=== PATIENT | male | born 1940 | race Caucasian/White ===

== ENCOUNTER → 2016-11-17 | Outpatient (CLI) | payer OTHER ==
[~2016-11-17] MED LIST: ASPI-232 PO; CARV12.52 PO; OMEP20CA9 PO
== END | disposition home or self-care (01) ==
LOC: C.LABPBG 10:46
PROVIDERS: ATTEND Urology
DX: C61 Malignant neoplasm of prostate (principal)

== ENCOUNTER → 2017-08-25 | Outpatient (CLI) | payer OTHER | END | disposition home or self-care (01) | LOC: C.LABPBG 09:53 | PROVIDERS: ATTEND Urology | DX: C61 Malignant neoplasm of prostate (principal) ==

== ENCOUNTER 2020-12-02 11:27 | Observation (INO) ==
[2020-12-02] MEDS ORDERED: SODIUM CHLORIDE 0.9% 1000ML 1,000 ML IV ONE (12:43)
[2020-12-02] MEDS ORDERED: ASPIRIN CHEW 324 MG PO STA (12:43)
[2020-12-02] MEDS ORDERED: MAGNESIUM SULFATE / D5W 1 GM/100 ML BAG IV STA (12:44)
[2020-12-02 13:08] LABS: Basophils # (auto) 0.02 K/uL (0-0.2); Basophils % (auto) 0.2 %; Eosinophils # (auto) 0.13 K/uL (0-0.5); Eosinophils % (auto) 1.6 %; Immature Granulocytes # (auto) 0.01 K/uL (0.00-0.02); Immature Granulocytes % (auto) 0.1 %; Lymphocytes # (auto) 1.29 K/uL (1.2-3.4); Lymphocytes % (auto) 15.6 %; Mean Corpuscular Hemoglobin 28.7 pg (25-34); Mean Corpuscular Hgb Conc 33.3 g/dL (32-36); Mean Corpuscular Volume 86.1 fL (80-100); Mean Platelet Volume 10.5 fL (7.4-10.4); Monocytes # (auto) 1.14 K/uL (0.11-0.59); Monocytes % (auto) 13.8 %; Neutrophils % (auto) 68.7 %; Platelet Count 193 K/uL (130-400); RDW Coefficient of Variation 14.8 % (11.5-14.5); RDW Standard Deviation 46.9 fL (36.4-46.3); Red Blood Count 4.18 M/uL (4.7-6.1); White Blood Count 8.29 K/uL (4.8-10.8)
[2020-12-02 13:18] LABS: INR 1.2 (0.9-1.1); Partial Thromboplastin Ratio 1.2; Partial Thromboplastin Time 30.5 Seconds (21.0-31.0); Prothrombin Time 11.9 Seconds (9.0-12.0)
--- NOTE | 2020-12-02 13:23 | XRay Report ---
XR chest 1V portable HISTORY: Stroke Like Symptoms COMPARISON: Chest 03/29/2015. FINDINGS: There are poststernotomy changes. The heart is normal in size. No pleural effusions. No pne umothorax. No focal lung consolidations to suggest pneumonia. No evidence for pulmonary edema. IMPRESSION: No significant change compared to the prior study. No acute process. ACT 112: Negative or not required by law. Electronically signed by: Prasanna Becker M.D. 12/02/2020 1:22 PM
[2020-12-02 13:28] LABS: Albumin Level 3.7 gm/dl (3.4-5.0); BUN Creatinine Ratio 14.2 (10-20); Blood Urea Nitrogen 14 mg/dl (7-18); Calcium 9.4 mg/dl (8.5-10.1); Carbon Dioxide 30 mmol/L (21-32); Chloride 102 mmol/L (98-107); Creatinine Clr Calc Pharmacy 56.4 ml/min; Est GFR (African American) 82.2; Est GFR (Non-African American) 70.9; Glucose 95 mg/dl (70-99); Magnesium 1.6 mg/dl (1.8-2.4); Potassium 3.8 mmol/L (3.5-5.1); Sodium 135 mmol/L (136-145)
[2020-12-02 13:37] LABS: Alanine Aminotransferase 26 U/L (12-78); Albumin Globulin Ratio 0.8 (0.9-2); Alkaline Phosphatase 131 U/L (45-117); Aspartate Aminotransferase 27 U/L (15-37); Globulin 4.8 gm/dl (2.5-4.0); Total Protein 8.5 gm/dl (6.4-8.2); Troponin I < 0.015 ng/ml (0-0.045)
[2020-12-02] MEDS ORDERED: OPTIRAY 350 500ml IV ONE (14:05)
--- NOTE | 2020-12-02 14:16 | CT Scan Report ---
CT head/brain wo con CLINICAL HISTORY: Stroke Like Symptoms COMPARISON STUDY: No previous studies for comparison. TECHNIQUE: Axial CT of the brain is performed from the vertex to the skull base. IV contrast was not administered for this examination. A dose lowering technique was utilized adhering to the principles of ALARA. CT DOSE: 1419.22 mGy.cm FINDINGS: No intra or extra-axial mass lesions are visualized. There is no CT evidence of acute cortical infarc tion. There is no evidence of midline shift. There is no acute hemorrhage. No calvarial fractures ar e visualized. There are patchy white matter hypodensities likely on a small vessel basis. There is a right lateral thalamic infarct, likely old. There is no evidence of pathologic ventricular dilatation. There is no evidence of acute sinusitis IMPRESSION: 1. Right lateral thalamic infarct, likely old 2. No evidence of acute hemorrhage. No evidence of intracranial mass. ACT 112: Negative or not required by law. Electronically signed by: Adria Diaz M.D. 12/02/2020 2:15 PM
--- NOTE | 2020-12-02 14:19 | CT Scan Report ---
CT angio neck with con CLINICAL HISTORY: Stroke Like Symptoms COMPARISON STUDY: No previous studies for comparison. TECHNIQUE: CT angiography was performed from the aortic arch to the skull base. MIP imaging was perfo rmed. The patient was scanned in a dynamic helical fashion during intravenous administration of 114 c c of Optiray. A dose lowering technique was utilized adhering to the principles of ALARA. CT DOSE: Technique: CT angiogram of the carotid and vertebral arteries was obtained using intravenous contrast and 3-D reconstruction. NASCET criteria was utilized. Findings: There is pulmonary emphysema. The right carotid reveals extensive calcific atheromatous plaque at the bulb. There is no evidence of hemodynamically significant stenosis. There is cavernous sinus carotid calcification. Without hemody namic significant stenosis. There is no dissection. The left carotid reveals extensive calcific atheromatous plaque at the level of the bulb. There is no evidence of hemodynamically significant left carotid stenosis. There is cavernous carotid calcificat ion without evidence of significant stenosis. There is no evidence of hemodynamically significant vertebral stenosis. There is no evidence of verte bral dissection. IMPRESSION: No evidence of hemodynamically significant carotid or vertebral artery stenosis. No evidence of disse ction. ACT 112: Negative or not required by law. Electronically signed by: Adria Diaz M.D. 12/02/2020 2:18 PM
--- NOTE | 2020-12-02 14:23 | CT Scan Report ---
HEAD CTA HISTORY: Difficulty walking. Stroke Like Symptoms TECHNIQUE: Multiaxial CT images of the head were performed both before and after the intravenous admi nistration of contrast to evaluate the major cerebral vessels. Maximum intensity projection images we re also obtained. A dose lowering technique was utilized adhering to the principles of ALARA. COMPARISON: Head CT 11/24/2020. FINDINGS: The major dural venous sinuses appear patent. Focal severe stenosis within the distal left vertebral artery due to the extensive calcified plaque. The remaining distal left vertebral artery an d right vertebral artery are patent. No significant stenosis within the basilar artery. There is mode rate multifocal narrowing within the bilateral carotid siphons due to the extensive calcified plaque. No significant stenosis, occlusion, or aneurysm within the bilateral ACAs, MCAs, or associate product integrity engineer. IMPRESSION: 1. Focal severe stenosis within the distal left intracranial vertebral artery due to the extensive ca lcified plaque. 2. Moderate multifocal narrowing within the bilateral carotid siphons due to the extensive calcified plaque. 3. No significant stenosis, occlusion, or aneurysm within the bilateral ACAs, MCAs, or associate product integrity engineer. ACT 112: Negative or not required by law. Electronically signed by: Prasanna Becker M.D. 12/02/2020 2:22 PM
--- NOTE | 2020-12-02 15:02 | Magnetic Resonance Report ---
MRI OF THE BRAIN WITHOUT CONTRAST CLINICAL HISTORY: Stroke like symptoms COMPARISON STUDY: Noncontrast head CT dated 11/24/2020 FINDINGS: Sagittal T1, axial diffusion, proton density and T2 weighted axial, coronal FLAIR, and axial T1-weigh cade images were acquired. No intra or extra-axial mass lesions are visualized There is a 1 cm focus of restricted water diffusion within the right lateral thalamus. The findings a re consistent with a subacute infarct, given the appearance on the accompanying noncontrast head CT. There is no evidence of ventricular dilatation. Proton density T2-weighted and FLAIR images reveal scattered foci of increased T2 signal within the w [place]ap[place] matter, likely on a small vessel basis. There are no abnormal flow voids. IMPRESSION: 1. 1 cm subacute infarct within the right lateral thalamus. ACT 112: Negative or not required by law. Electronically signed by: Adria Diaz M.D. 12/02/2020 3:00 PM
[2020-12-02 15:15] LABS: Influenza A virus by PCR Negative (Neg); Influenza B virus by PCR Negative (Neg); RSV by PCR Negative (Neg); SARS CoV2 RNA(COVID-19) InHosp NEGATIVE (Negative)
--- NOTE | 2020-12-02 15:28 | History & Physical Report ---
Date of Service December 02, 2020 Assessment & Plan (1) Cerebrovascular accident (CVA): Mr. Castillo is a 80-year-old male with a history of CAD s/p AR 2003, CABG x 3 Vessels 2003 ([facility]), Dyslipidemia, Former Smoker, Prostate Cancer s/p Robotically-Assisted Prostatectomy 2014, Urinary Incontinence, Alcohol Abuse (4 beers and 4 glasses of wine/day), Peripheral Neuropathy, and Carotid Artery Stenosis who sustained a Right Lateral Thalamic CVA 12 days ago. Patient did not seek medical attention until 11/30/2020 when he was evaluated at [facility]. Patient was told he had a stroke in the ER of that facility -- and he was advised to be admitted for further evaluation by Neurology and Physical Therapy. Patient decided he did not want to do that, so he signed out AMA. Nonetheless, the patient's has been encouraging him to seek further evaluation and treatment, so at her insistence he came to [facility] ER today. Patient continues to experience mild left upper extremity and mild left leg weakness, has difficulty holding objects with his left hand, and struggles to walk up the stairs because of his left leg weakness. Patient denies any progression of this weakness since its initial onset. He has not had any slurred speech, visual disturbance, blind spots, black spots, loss of visual mckeon, nor has he had any facial droop. Patient's states that he has been having difficulty swallowing foods and pills -- but this has been present for years, and has not changed recently or with the onset of his recent stroke symptoms. Apparently the patient has been living on Boost, beer, and wine. He still does eat some solid foods. Otherwise, patient is chronically incontinent of urine but has refused to seek any medical attention for this problem. Again, this predates his recent stroke symptoms. Recommend the followin. Continue Aspirin 81 mg daily. 2. Load with Plavix 300 mg now, then Plavix 75 mg daily. 3. Neurology consult. 4. Physical therapy and occupational therapy evaluations. 5. Begin Atorvastatin 40 mg daily. (2) Left-sided muscle weakness: Secondary to CVA. -- PT/OT Evaluations. (3) CAD (coronary atherosclerotic disease): CAD s/p CABG x 3 Vessels 2003 -- quiescent. -- Continue Coreg 12.5 mg daily. -- Continue Aspirin 81 mg daily. -- Atorvastatin 40 mg daily has been added. -- Plavix 75 mg daily. (4) Hypertension: Blood pressure appears to be well controlled. -- Continue Coreg 12.5 mg daily. -- Continue Amlodipine 5 mg daily. (5) Dyslipidemia: Overall, his cholesterol panel does not look bad, but considering he has vascular disease including CAD, carotid artery disease, and cerebral vascular disease -- we will add a statin. -- Atorvastatin 40 mg daily has been added. History of Present Illness Chief Complaint: -- Right Lateral Thalamic Stroke. -- Carotid Artery Plaques. -- Focal severe stenosis within the distal left intracranial vertebral artery due to the extensive calcified plaque. Primary Care Provider: Sherri Mi DO Mr. Castillo is a 80-year-old male with a history of CAD s/p AR 2003, CABG x 3 Vessels 2003 ([facility]), Dyslipidemia, Former Smoker, Prostate Cancer s/p Robotically-Assisted Prostatectomy 2014, Urinary Incontinence, Alcohol Abuse (4 beers and 4 glasses of wine/day), Peripheral Neuropathy, and Carotid Artery Stenosis who sustained a Right Sided CVA 12 days ago -- but he did not seek medical attention until 11/30/2020 when he was evaluated at [facility]. Patient was told he had a stroke in the ER of that facility -- and he was advised to be admitted for further evaluation by Neurology and Physical Therapy. Patient decided he did not want to do that, so he signed out AMA. Nonetheless, the patient's has been encouraging him to seek further evaluation and treatment, so at her insistence he came to [facility] ER today. Patient continues to experience mild left upper extremity and mild left leg weakness, has difficulty holding objects with his left hand, and struggles to walk up the stairs because of his left leg weakness. Patient denies any progression of this weakness since its initial onset. He has not had any slurred speech, visual disturbance, blind spots, black spots, loss of visual mckeon, nor has he had any facial droop. Patient's states that he has been having difficulty swallowing foods and pills -- but this has been present for years, and has not changed recently or with the onset of his recent stroke symptoms. Apparently the patient has been living on Boost, beer, and wine. He still does eat some solid foods. Otherwise, patient is chronically incontinent of urine but has refused to seek any medical attention for this problem. Again, this predates his recent stroke symptoms. Please note that the patient has been taking Coreg, Aspirin, and Amlodipine on a daily basis -- and did not miss any doses leading up to his CVA. Patient is able to perform his usual activities of daily living without difficulty or limiting symptoms. He specifically denies any exertional chest pain, heaviness, tightness, pressure, or angina pectoris. No exertional neck, jaw, back, or arm pain. No shortness of breath or unusual dyspnea on exertion. He further denies any palpitations, syncope, or near-syncope. No orthopnea or PND. Patient underwent a Stress Echocardiogram 03/06/2015 and preparation of his prostatectomy. He exercised for 7 minutes and 37 seconds on standard Cristian protocol attaining a 10 MET workload, and 74% MPHR. No evidence of myocardial ischemia. Baseline LV systolic function within normal limits with an LVEF of 60%, mild mitral regurgitation. HISTORICAL BACKGROUND: Patient's cardiac history dates back to 2003 when he developed sudden onset crushing chest pain which radiated down bilateral arms and had associated nausea, vomiting, and diaphoresis. He was diagnosed with an AR (details unknown) and transferred to [facility] in [place], where he underwent CABG x 3 Vessels (DELGADILLO to LAD, IRAIS to PDA and BROOKE in a sequential fashion). No postoperative complications. Thereafter the patient remained asymptomatic from a cardiac standpoint. He had an Echocardiogram performed in October 2004 which showed normal LV size and systolic function with an LVEF of 55%, no regional wall motion abnormalities. Borderline LVH. Aortic valve sclerosis without stenosis, trace to mild MR, trace to mild TR. He also had a nuclear stress test 10/13/2004 which showed no evidence of ischemia. Patient denies any history of congenital heart disease, CHF, cardiomyopathy, rheumatic fever, or cardiac dysrhythmias. No history of diabetes mellitus, hypertension, or hypercholesterolemia? (Not on a statin). No history of COPD, asthma, emphysema, or chronic bronchitis. No history of thyroid disease. Allergies Allergy/AdvReac Type Severity Reaction Status Date / Time No Known Allergies Allergy Unverified 12/02/20 13:59 Home Medications Medication Instructions Recorded Confirmed Type aspirin 81 mg tablet 81 mg PO DAILY tab 05/17/19 12/02/20 History amlodipine 5 mg tablet 5 mg .ROUTE DAILY #90 tab 05/14/20 12/02/20 Rx carvedilol 12.5 mg tablet 12.5 mg PO DAILY #90 tab 09/29/20 12/02/20 Rx folic acid 1 mg PO DAILY 12/02/20 12/02/20 History magnesium oxide 400 mg PO DAILY 12/02/20 12/02/20 History Past Med/Surg History Medical History (Updated 12/02/20 @ 15:57 by César Hess PA-C) Allergic rhinitis CAD (coronary atherosclerotic disease) Chronic rhinitis Dyslipidemia GERD (gastroesophageal reflux disease) History of prostate cancer (01/2015) Hypertension Iron deficiency anemia Monoclonal gammopathy of unknown significance (MGUS) Prostate cancer (01/29/15) "Rising PSA. Pretreatment PSA 28.1 Status post biopsy 01/29/2015 biopsy stage T2b [place] grade 3+4 and 4+4 Prostate volume 28 Prostate density 1.16" On 02/19/15 16:55 Milagros Cruz wrote "Rising PSA. Pretreatment PSA 28.1 Status post biopsy 01/29/2015 biopsy stage T2b [place] grade 3+4 and 4+4 " Surgical History H/O prostate biopsy H/O prostatectomy (2014) History of esophagogastroduodenoscopy (EGD) Hx of CABG (2003) 3 vessel Status post hernia repair (11/24/15) incisional hernia repair Family History Brother Alcoholism Father Coronary heart disease Gall bladder disease Hypertension Myocardial infarction, Onset Age: 85 Mother Congestive heart failure Aunt Breast cancer, Onset Age: 60 Family/Other Prostate cancer COUSIN Uncle Myocardial infarction, Onset Age: 52 Social History Smoking Status: Former smoker Age Quit Using Tobacco: 37; packs per day: 1; Do You Dip or Chew Tobacco: No; Hx Alcohol Use: Yes Alcohol type: beer and wine Alcohol Intake Frequency Comment: 4-5 beers per day Hx Substance Use: No Preferred Language: Samoan Communication Ability: Effective Communication Center Coordinator Required: No Beliefs That Will Affect Care: None marital status: Current Living Situation: Spouse current occupational status: 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 HEENT: Head is atraumatic, normocephalic. Pupils are equal round and reactive to light. EOM's intact. Facies symmetric. No perioral cyanosis. No facial droop. Mucous membranes moist. Pharynx is clear. Tongue protrudes in midline. Uvula rises in midline. NECK: No JVD. JVP is at the level of the clavicle sitting upright. Carotid upstrokes are + 2 bilaterally without obvious bruits. CHEST/LUNGS: Mildly reduced breath sounds bilaterally, but otherwise clear. No wheezes, rales, or crackles. CVS: S1 and S2 are regular with occasional ectopy. No obvious murmurs, gallops, or rubs. No diastolic murmurs. PMI is nondisplaced. No lifts, heaves, or thrills. No abdominal aortic or renal bruits. ABDOMINAL EXAM: Bowel sounds are present. No masses, organomegaly, or tenderness. EXTREMITIES: No clubbing or cyanosis. No edema. Intact posterior tibial and radial pulses bilaterally. NEUROLOGIC EXAM: Patient is awake, alert, and oriented. Pleasant and cooperative. Answers questions appropriately. Speech is clear. Decreased food quality technician strength on the left compared to the right, decreased strength in the interosseous and lumbrical muscles of the left hand. No other upper extremity muscle groups deficits noted. Strength of major muscle groups in bilateral lower extremities appear to be equal in strength. Gait pattern was not assessed. Director Communications: -- NSR with occasional PVCs and PACs. EKG 12/02/20: -- Normal sinus rhythm at 63 beats per minute, normal tracing. -- Normal R-wave progression. -- Corrected QT interval 415 msec. Results & Data Results & Data ([facility]) Vital Signs (Past 12 Hours) Vital Signs Temp Pulse Resp BP Pulse Ox 12/02/20 11:48 98 12/02/20 11:33 36.7 C 73 16 107/59 L 97 Laboratory Results Laboratory Results - last 24 hr 12/02/20 12/02/20 12/02/20 12:44 12:44 12:44 WBC 8.29 RBC 4.18 L Hgb 12.0 L Hct 36.0 L MCV 86.1 MCH 28.7 MCHC 33.3 RDW Std Deviation 46.9 H RDW Coeff of Renan 14.8 H Plt Count 193 MPV 10.5 H Immature Gran % (Auto) 0.1 Neut % (Auto) 68.7 Lymph % (Auto) 15.6 [place] % (Auto) 13.8 Eos % (Auto) 1.6 Baso % (Auto) 0.2 Neut # (Auto) 5.70 Lymph # (Auto) 1.29 [place] # (Auto) 1.14 H Eos # (Auto) 0.13 Baso # (Auto) 0.02 Immature Gran # (Auto) 0.01 PT 11.9 INR 1.2 H APTT 30.5 PTT Ratio 1.2 Sodium 135 L Potassium 3.8 Chloride 102 Carbon Dioxide 30 Anion Gap 3.0 BUN 14 Creatinine 1.01 Est Cr Clr Drug Dosing 56.4 Est GFR ( Amer) 82.2 Est GFR (Non-Af Amer) 70.9 BUN/Creatinine Ratio 14.2 Glucose 95 Calcium 9.4 Magnesium 1.6 L Total Bilirubin 1.0 AST 27 ALT 26 Alkaline Phosphatase 131 H Troponin I < 0.015 Total Protein 8.5 H Albumin 3.7 Globulin 4.8 H Albumin/Globulin Ratio 0.8 L COVID-19 Eval Order SARS-CoV-2 (PCR) Influenza Type A (PCR) Influenza Type B (PCR) RSV (RT-PCR) 12/02/20 12/02/20 13:20 13:20 WBC RBC Hgb Hct MCV MCH MCHC RDW Std Deviation RDW Coeff of Renan Plt Count MPV Immature Gran % (Auto) Neut % (Auto) Lymph % (Auto) [place] % (Auto) Eos % (Auto) Baso % (Auto) Neut # (Auto) Lymph # (Auto) [place] # (Auto) Eos # (Auto) Baso # (Auto) Immature Gran # (Auto) PT INR APTT PTT Ratio Sodium Potassium Chloride Carbon Dioxide Anion Gap BUN Creatinine Est Cr Clr Drug Dosing Est GFR ( Amer) Est GFR (Non-Af Amer) BUN/Creatinine Ratio Glucose Calcium Magnesium Total Bilirubin AST ALT Alkaline Phosphatase Troponin I Total Protein Albumin Globulin Albumin/Globulin Ratio COVID-19 Eval Order CovFluRsv at [facility] SARS-CoV-2 (PCR) NEGATIVE Influenza Type A (PCR) Negative Influenza Type B (PCR) Negative RSV (RT-PCR) Negative Diagnostic Findings MRI BRAIN 12/02/20: Sagittal T1, axial diffusion, proton density and T2 weighted axial, coronal F LAIR, and axial T1-weighted images were acquired. No intra or extra-axial mass lesions are visualized There is a 1 cm focus of restricted water diffusion within the right lateral thalamus. The findings are consistent with a subacute infarct, given the appearance on the accompanying noncontrast head CT. There is no evidence of ventricular dilatation. Proton density T2-weighted and FLAIR images reveal scattered foci of increased T2 signal within the white matter, likely on a small vessel basis. There are no abnormal flow voids. IMPRESSION: 1. 1 cm subacute infarct within the right lateral thalamus. CTA NECK 12/02/20: 1. There is pulmonary emphysema. 2. The right carotid reveals extensive calcific atheromatous plaque at the bulb. There is no evidence of hemodynamically significant stenosis. There is cavernous sinus carotid calcification without hemodynamic significant stenosis. There is no dissection. 3. The left carotid reveals extensive calcific atheromatous plaque at the level of the bulb. There is no evidence of hemodynamically significant left carotid stenosis. There is cavernous carotid calcification without evidence of significant stenosis. 4. There is no evidence of hemodynamically significant vertebral stenosis. There is no evidence of vertebral dissection. IMPRESSION: No evidence of hemodynamically significant carotid or vertebral artery stenosis. No evidence of dissection. CTA BRAIN 12/02/20: 1. 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 2. Moderate multifocal narrowing within the bilateral carotid siphons due to the extensive calcified plaque. 3. No significant stenosis, occlusion, or aneurysm within the bilateral ACAs, MCAs, or principal account clerk. CXR 12/02/20: There are post-sternotomy changes. The heart is normal in size. No pleural effusions. No pneumothorax. No focal lung consolidations to suggest pneumonia. No evidence for pulmonary edema. IMPRESSION: No significant change compared to the prior study. No acute process. Medications Administered Medications aspirin 81 mg tablet 81 mg PO DAILY tab 05/17/19 [History Confirmed 12/02/20] amlodipine 5 mg tablet 5 mg .ROUTE DAILY #90 tab 05/14/20 [Rx Confirmed 12/02/20] carvedilol 12.5 mg tablet 12.5 mg PO DAILY #90 tab 09/29/20 [Rx Confirmed 12/02/20] folic acid 1 mg PO DAILY 12/02/20 [History Confirmed 12/02/20] magnesium oxide 400 mg PO DAILY 12/02/20 [History Confirmed 12/02/20] Code Status & VTE Plan Code Status Full Code VTE Prophylaxis Plan VTE Prophylaxis will be ordered: Yes Supervising Physician Co-Signing Physician Notes I personally saw and examined the patient. I verified all ewing points and agree with César Hess PA-C with the following exceptions and/or additions: 80-year-old male. Initial stroke symptoms 12 days ago. Signed out AMA from [facility] emergency room after being diagnosed with stroke. O/E CN 2-> 12 intact, no pronator drift on the left side. He denies any problems holding objects with his left hand to myself and his food quality technician strength appears equal bilaterally. Sensory deficit - peripheral neuropathy in feet only. Reports his gait is still a problem however this was not assessed by myself at bedside. A/P CVA - previously diagnosed by did not have full workup. Despite being 12 days out he has significant risk factors including coronary artery disease s/p CABG, dyslipidemia, former smoker, alcohol abuse and poor follow-up care. Therefore advised for admission for inpatient work-up including TTE, telemetry overnight and neurology consult. Discussed with JOSE LUIS and will start clopidogrel loading dose now then 75 mg daily. LDL in May 2020 67 -I am unclear why he was previously not on a statin however with his coronary artery disease and now stroke would warrant high-dose atorvastatin. TTE, PT/OT, consult neurology. Alcohol abuse - B12 497 in September 2020. Add thiamine to current medications. Encourage cessation with his PCP due to peripheral neuropathy and problems with balance. PG Care Time/CCT Total # of Minutes Spent Total Time Spent with Patient: Total time spent is greater than 50% in coordination of care (as documented) at patient's floor/unit and/or counseling patient: Coding Level of Care Code 98331 OBS Care - Level 3 Diagnoses Cerebrovascular accident (CVA) I63.9 Left-sided muscle weakness M62.81 CAD (coronary atherosclerotic disease) I25.10 Hypertension I10 Dyslipidemia E78.5 Time Spent (min) 55
[2020-12-02 15:48] LABS: iSTAT Hemoglobin 12.2 g/dl (14.0-18.0); iSTAT Ionized Calcium 1.26 mmol/l (1.12-1.32); iSTAT Potassium 3.8 mmol/L (3.3-5.0)
[2020-12-02] MEDS ORDERED: CLOPIDOGREL BISULFATE 300 MG TAB PO STA (16:16)
--- NOTE | 2020-12-02 16:25 | Electrocardiogram Report ---
Test Reason : Blood Pressure : / mmHG Vent. Rate : 063 BPM Atrial Rate : 063 BPM P-R Int : 174 ms QRS Dur : 082 ms QT Int : 406 ms P-R-T Axes : -08 020 041 degrees QTc Int : 415 ms Normal sinus rhythm Nonspecific T wave abnormality Abnormal ECG No previous ECGs available Confirmed by Nam Truong ([id number]) on 12/02/2020 4:24:59 PM Referred By: REFERRED SELF Confirmed By:Nam Truong
[2020-12-02] MEDS ORDERED: MAGNESIUM HYDROXIDE SUSP 30 ML UDC PO PRN (18:49)
[2020-12-02] MEDS ORDERED: ALUMINUM/MAGNESIUM SUSP 30 ML UDC PO PRN (18:49)
[2020-12-02] MEDS ORDERED: ZOLPIDEM TARTRATE 5 MG TAB PO PRN (18:49)
[2020-12-02] MEDS ORDERED: ACETAMINOPHEN 325 MG TAB PO PRN (18:49)
[2020-12-02] MEDS ORDERED: POLYETHYLENE (MIRALAX) 17 GM PACK PO PRN (18:49)
[2020-12-02] MEDS ORDERED: NITROGLYCERIN SL 0.4 MG/TAB TAB SL PRN (18:49)
[2020-12-02] MEDS ORDERED: ONDANSETRON INJ 2 MG/ML 2 ML VIAL IV PRN (18:49)
[2020-12-02] MEDS: MAGNESIUM CHLORIDE 64MG DELAYED REL TAB PO SCH (21:03)
[2020-12-03] MEDS: MAGNESIUM CHLORIDE 64MG DELAYED REL TAB PO SCH (08:42)
[2020-12-03] MEDS ORDERED: amLODIPine BESYLATE 5 MG TAB PO SCH (09:00)
[2020-12-03] MEDS ORDERED: FOLIC ACID 1 MG TAB PO SCH (09:00)
[2020-12-03] MEDS ORDERED: NON-FORMULARY MEDICATION (Aspirin 81 mg tablet) PO SCH (09:00)
[2020-12-03] MEDS ORDERED: CLOPIDOGREL BISULFATE 75 MG TAB PO SCH (09:00)
[2020-12-03] MEDS ORDERED: ASPIRIN 81 MG ECTAB PO SCH (09:00)
[2020-12-03] MEDS ORDERED: carvediloL 12.5 MG TAB PO SCH (09:00)
[2020-12-03] MEDS ORDERED: ATORVASTATIN 40 MG TAB PO SCH (10:00)
[2020-12-03] MEDS ORDERED: THIAMINE HCL 100 MG TAB PO SCH (11:00)
--- NOTE | 2020-12-03 13:18 | Neurology Consultation ---
Date of Consultation December 03, 2020 Assessment & Plan (1) Right thalamic stroke: Yony Castillo is a 80 yo man w/ PMH of CAD s/p CABG, HTN, HLD, MGUS, anemia, prior tobacco abuse, alcohol abuse, known carotid stenosis, neuropathy and h/o prostate cancer who p/t [facility] after a right thalamic stroke on about 11/21/20 after leaving [facility]MA when stroke was diagnosed on 11/30/20. Symptom localization: right thalamus Stroke mechanism: cardioembolic vs lacunar/lipohyalinosis Stroke WorkUp: - CT head: no hemorrhage, late subacute to chronic hypodensity in the right thalamus is noted - CTA head/neck: no LVO, high-grade stenosis or aneurysm, there is diffuse intracranial atherosclerosis with minimal stenosis of bilateral ICA bifurcations - MRI brain: shows thinning of the corpus callosum, mild cerebellar atrophy, moderate SVID, subacute infarct in the right thalamus, mild to moderate generalized atrophy with ex vacuo dilation. - TTE: pending - Telemetry: pending - A1c: pending - FLP: pending - Troponin: negative Stroke Management: - Acute treatment: ASA/plavix load - Continuous cardiac monitoring, recommend 30 day Holter monitor as outpatient if telemetry here unrevealing - Vitals, Neurochecks, NIHSS per unit routine - BP parameters: SBP CAP 180, restart home anti-hypertensives for goal normotension - Complete ischemic stroke workup with TTE without bubble, A1c, fasting lipid panel - Consult speech, PT, OT for supportive management - Will counseling services manager concerning stroke education, smoking cessation, healthy diet, physical activity, weight loss - Follow up with PCP for assistance with outpatient goals (BP <130/80, LDL <70, A1c <7) - Follow up in neurology clinic in 6-8 weeks with JOSE LUIS Shi Secondary Stroke Prevention: - Antiplatelet: ASA 81mg po daily/plavix 75mg daily x 21 days, then just plavix 75mg daily - Anticoagulation: Not indicated at this time - Statin: Atorvastatin 40mg daily HTN: - BP parameters, as above - Restart home medications with goal of lowering BP to normotension FEN/GI: - Diet: NPO until cleared by Speech evaluation - Monitor lytes and replete PRN Glucose Control: - Sliding scale insulin and accuchecks per primary team to avoid hyperglycemia Thank you for this interesting consult. Plan of care was discussed with primary team. Please call with any questions. (2) CAD (coronary atherosclerotic disease): (3) Dyslipidemia: (4) Hypertension: History of Present Illness Attending Physician: George Pollard DO History of Present Illness Yony Castillo is a 80 yo man w/ PMH of CAD s/p CABG, HTN, HLD, MGUS, anemia, prior tobacco abuse, alcohol abuse, known carotid stenosis, neuropathy and h/o prostate cancer who p/t [facility] after a right thalamic stroke on about 11/21/20 after leaving [facility] when stroke was diagnosed on 11/30/20. On presentation, his vitals are within normal limits. Labs notable for WBC 8.29, hemoglobin 12 with MCV 86.1, platelets 193, INR 1.2, sodium 135, potassium 3.8, chloride 102, BUN 14, creatinine 1.01, glucose 95, calcium 9.4, magnesium low at 1.6, LFTs within normal, troponin negative, Covid negative. Imaging independently reviewed. CT head shows no hemorrhage, late subacute to chronic hypodensity in the right thalamus is noted. CTA head and neck shows no LVO, high-grade stenosis or aneurysm, there is diffuse intracranial atherosclerosis with minimal stenosis of bilateral ICA bifurcations. MRI brain shows thinning of the corpus callosum, mild cerebellar atrophy, moderate SVID, subacute infarct in the right thalamus, mild to moderate generalized atrophy with ex vacuo dilation. On examination, he reports that he woke up about 2 weeks ago and noticed difficulties with gait and that his left arm did not feel quite right. Did not seek care until a few days ago when he went to [facility] and was told that he had had a stroke (but left AMA prior to workup). Reports that he still has some mild gait difficulties but otherwise denies weakness, N/T, vision changes, facial droop or speech changes. Has been taking aspirin 81mg daily and his home BP meds. Denies any recent illness or injury prior to symptoms starting. Allergies Allergy/AdvReac Type Severity Reaction Status Date / Time No Known Allergies Allergy Unverified 12/02/20 13:59 Home Medications Medication Instructions Recorded Confirmed Type aspirin 81 mg tablet 81 mg PO DAILY tab 05/17/19 12/02/20 History amlodipine 5 mg tablet 5 mg .ROUTE DAILY #90 tab 05/14/20 12/02/20 Rx carvedilol 12.5 mg tablet 12.5 mg PO DAILY #90 tab 09/29/20 12/02/20 Rx folic acid 1 mg PO DAILY 12/02/20 12/02/20 History magnesium oxide 400 mg PO DAILY 12/02/20 12/02/20 History atorvastatin 40 mg PO QAM 30 Days #30 tab 12/03/20 Rx clopidogrel 75 mg PO QAM 30 Days #30 tab 12/03/20 Rx Patient History Medical History Allergic rhinitis CAD (coronary atherosclerotic disease) Chronic rhinitis Dyslipidemia GERD (gastroesophageal reflux disease) History of prostate cancer (01/2015) Hypertension Iron deficiency anemia Monoclonal gammopathy of unknown significance (MGUS) Prostate cancer (01/29/15) "Rising PSA. Pretreatment PSA 28.1 Status post biopsy 01/29/2015 biopsy stage T2b [place] grade 3+4 and 4+4 Prostate volume 28 Prostate density 1.16" On 02/19/15 16:55 Milagros Cruz wrote "Rising PSA. Pretreatment PSA 28.1 Status post biopsy 01/29/2015 biopsy stage T2b [place] grade 3+4 and 4+4 " Surgical History H/O prostate biopsy H/O prostatectomy (2014) History of esophagogastroduodenoscopy (EGD) Hx of CABG (2003) 3 vessel Status post hernia repair (11/24/15) incisional hernia repair Family History Brother Alcoholism Father Coronary heart disease Gall bladder disease Hypertension Myocardial infarction, Onset Age: 85 Mother Congestive heart failure Aunt Breast cancer, Onset Age: 60 Family/Other Prostate cancer COUSIN Uncle Myocardial infarction, Onset Age: 52 Social History Smoking Status: Former smoker Age Quit Using Tobacco: 37; packs per day: 1; Do You Dip or Chew Tobacco: No; Hx Alcohol Use: Yes Alcohol type: beer and wine Alcohol Intake Frequency Comment: 4-5 beers per day Hx Substance Use: No Preferred Language: Hungarian Communication Ability: Effective Textile Broker Required: No Beliefs That Will Affect Care: None marital status: Current Living Situation: Spouse current occupational status: 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 Exam (Neuro) Physical Exam: General Exam: GEN: NAD, sitting in chair HEENT: No conjunctival injection, no rhinorrhea. CV: RRR on monitor, no significant edema. PULM: Nonlabored respirations on room air. Neuro Exam: MS: Awake and Alert. Oriented to person, place, and date. Speech fluent and appropriate without dysarthria or paraphasic errors. Language intact including naming, comprehension, repetition. Cognition and memory grossly intact. Attention intact. No neglect. CN: Visual navarro full, + blink to threat bilaterally. No extinction to double simultaneous stimuli. Unable to visualize fundi on fundoscopic exam. PERRLA OU. EOMI without nystagmus. Facial sensation intact to LT. Facial muscles full and symmetric. Hearing intact to conversation. Shoulder shrug normal. Tongue midline. MOTOR: Normal bulk and tone. Slight pronator drift in LUE. BUE strength 5/5 at deltoids, biceps, triceps, wrist flexors and extensors bilaterally. BLE strength 5/5 at iliopsoas, hamstrings, quadriceps, tibialis anterior, and gastrocnemius bilaterally. REFLEXES: Trace at biceps, triceps, brachioradialis, absent patella, and absent Achilles bilaterally. Flexor plantar responses bilaterally. SENSORY: Intact to LT throughout, no extinction to double simultaneous stimuli. Vibration diminished in BLEs up to the knees. COORDINATION: No dysmetria or ataxia on [id number] bilaterally. Normal Holly bilaterally. GAIT: Deferred due to physical status. NIH STROKE SCALE 1A. Level of Consciousness (0-3) = 0 1B. LOC Questions (0-2) = 0 1C. LOC Commands (0-2) = 0 2. Best Horizontal Gaze (0-2) = 0 3. Visual Navarro (0-3) = 0 4. Facial Palsy (0-3) = 0 5. Motor Arm Right (0-4) = 0 Left (0-4) = 0 6. Motor Leg Right (0-4) = 0 Left (0-4) = 0 7. Limb Ataxia (0-2) = 0 8. Sensory (0-2) = 0 9. Best Language (0-3) = 0 10. Dysarthria (0-2) = 0 11. Extinction and Inattention (0-2) = 0 NIHSS TOTAL = 0 Results & Data ([facility]) Vital Signs (Past 12 Hours) Vital Signs Temp Pulse Pulse Pulse Resp BP Pulse Ox 12/03/20 11:30 36.5 C 65 18 124/68 97 12/03/20 07:47 36.8 C 79 18 126/61 97 12/03/20 07:26 78 12/03/20 04:11 36.6 C 86 20 124/68 96 PG Care Time/CCT Total # of Minutes Spent Total Time Spent with Patient: Total time spent is greater than 50% in coordination of care (as documented) at patient's floor/unit and/or counseling patient: Coding Level of Care Code 36524 Office/Outpt Visit, New Diagnoses Right thalamic stroke I63.9 CAD (coronary atherosclerotic disease) I25.10 Dyslipidemia E78.5 Hypertension I10
--- NOTE | 2020-12-03 16:37 | XCELERA ---
[id number]
--- NOTE | 2020-12-04 06:38 | Electrocardiogram Report ---
Test Reason : Blood Pressure : / mmHG Vent. Rate : 076 BPM Atrial Rate : 089 BPM P-R Int : 000 ms QRS Dur : 084 ms QT Int : 420 ms P-R-T Axes : 000 045 042 degrees QTc Int : 472 ms Sinus rhythm with occasional Premature ventricular complexes and Premature supraventricular complexe s Abnormal ECG When compared with ECG of 02-DEC-2020 12:15, Premature supraventricular complexes are now Present Premature ventricular complexes are now Present QT has lengthened Confirmed by Rubens Martin ([id number]) on 12/04/2020 6:38:02 AM Referred By: REFERRED SELF Confirmed By:Rubens Martin
--- NOTE | 2020-12-05 11:56 | Emergency Department Note ---
Impression & Plan Right thalamic stroke, Cerebrovascular accident (CVA), Left-sided muscle weakness ED Provider Note NAME: EVA BUTLER AGE: 80 SEX: M : 1940 ARRIVES VIA: Walk-In INFORMANT: Patient, ED PROVIDER(S): Cesar Rice MD CHIEF COMPLAINT: off balance HPI: This is a 80-year-old male who presents emergency department complaining of being off balance for the past week. The patient and his report to the emergency department. He reports 2 days ago he was at [facility] and was diagnosed with a stroke. At that time it was felt that the patient should be admitted first transferred to a stroke center however the patient did not wish to be admitted. He presents here for further work-up of his stroke. He reports he only had a CAT scan of his head. The patient reports anytime he walks he is off balance to the point that he almost runs into a wall. He reports nothing seems to make the balance better or worse. He has not taken anything for this. ROS: See above HPI for pertinent positives & negatives. A total of 10 systems reviewed and were otherwise negative. PAST MEDICAL HISTORY: See Below PAST SURGICAL HISTORY: See Below FAMILY HISTORY: See Below SOCIAL HISTORY: See Below HOME MEDICATIONS: See Below ALLERGIES: See Below VITALS: See Below PHYSICAL EXAMINATION: VITAL SIGNS - Vital signs and nursing notes were reviewed. GENERAL - 80-year-old male appearing stated age who is in no acute distress. Communicates well with provider and answers questions appropriately. SKIN - Without rashes. HEAD - NC/AT. EYES - PERRL with EOMI bilaterally. Sclera anicteric. Palpebral conjunctiva pink and moist with no injection noted. EARS - No deformities of external structures noted on gross examination bilaterally. NOSE - Midline and without cyanosis. No epistaxis or purulent drainage noted. Septum midline without deviation or septal hematoma noted. MOUTH/OROPHARYNX - Without perioral cyanosis. Buccal mucosa pink and moist and without leukoplakia. Tongue midline with equal elevation of palate bilaterally. No tonsillar hypertrophy, erythema, or exudates noted. NECK - Neck with FROM. Supple to palpation. No nuchal rigidity. LUNGS - Chest wall symmetric without accessory muscle use, intercostals retractions, or central cyanosis. Normal vesicular breath sounds CTA B/L. No wheezes, rales, or rhonchi appreciated. CARDIAC - RRR with S1/S2. No murmur, rubs, or gallops appreciated. ABDOMEN - Abdominal contour [] without pulsations or visible masses. BS normoactive all four quadrants. No tenderness, palpable masses, hepatosplenomegaly, or ascites noted. EXTREMITIES - No clubbing or peripheral cyanosis. No pretibial edema present. +3/5 radial, posterior tibial, and dorsalis pedis pulses palpated throughout. +5/5 strength noted in UE/LE bilaterally. NEUROLOGIC - Cranial nerves II through XII grossly intact. Sensory intact to light touch throughout. Patellar reflexes +2/4. PSYCH - A&Ox3 and cooperates fully with examiner. Pt is very pleasant and interacts well with examiner. MEDICAL DECISION MAKING: Patient was seen and evaluated as above in room B6. Review was performed of nursing notes and vital signs. I did review pertinent previous visits and patient history. After obtaining a thorough history and physical examination the above work up was performed. This is a 80-year-old male who presents to the emergency department complaining of being off balance for at least the last week. Using shared medical decision making with the patient he was sent for CT of the head as well as CTA of the head and neck. This is concerning for a CVA. The patient was then sent for an MRI. Based on these findings I do feel the patient should be admitted to the hospital. I did discuss the case with the hospitalist service who did agree admit the patient. Patient and are in agreement with the treatment plan. I will note that the patient does not have an elevation his white blood cell count and has a normal renal profile. While in the department, I personally reevaluated the patient several times and each time the patient was found to be resting comfortably. The patient was educated upon management, educated upon todays findings/results, educated upon importance of follow up from today's visit, educated upon symptoms in which to r eturn, had questions answered prior to discharge, verbalized understanding, and was discharged home in good condition. An order was placed for continuous cardiac monitoring. The monitor shows a rate of 72 with Normal Sinus rhythm. The patient was evaluated during a period of high volume and high acuity during the global COVID-19 pandemic, and that diagnosis was suspected/considered upon their initial presentation. Their evaluation, treatment and testing was consistent with current guidelines for patients who present with complaints or symptoms that may be related to COVID-19. Patient was seen while provider was wearing PPE. Triage Nursing notes reviewed. Prior medical records reviewed Vital Signs: reviewed and remarkable for no significant abnormalities Differential diagnosis: Infection, dehydration, metabolic abnormality, hypo/hyperglycemia, electrolyte disturbance, anemia, hypoxia, cardiac sources, intracerebral event, toxicologic, neurologic, as well as other pathologies. ER treatment provided: See below Diagnostics interpreted by me: ECG: EKG shows a normal sinus rhythm no ST elevation or depression QTC is 415 ventricular rate of 63 there is no previous EKG to compare to Laboratory studies: As stated above and show below. Imaging studies: See below Consultation(s): Internal Medicine Past Med/Surg History Medical History Allergic rhinitis CAD (coronary atherosclerotic disease) Chronic rhinitis Dyslipidemia GERD (gastroesophageal reflux disease) History of prostate cancer (01/2015) Hypertension Iron deficiency anemia Monoclonal gammopathy of unknown significance (MGUS) Prostate cancer (01/29/15) "Rising PSA. Pretreatment PSA 28.1 Status post biopsy 01/29/2015 biopsy stage T2b [place] grade 3+4 and 4+4 Prostate volume 28 Prostate density 1.16" On 02/19/15 16:55 Milagros Cruz wrote "Rising PSA. 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 Status post hernia repair (11/24/15) incisional hernia repair Family History Brother Alcoholism Father Coronary heart disease Gall bladder disease Hypertension Myocardial infarction, Onset Age: 85 Mother Congestive heart failure Aunt Breast cancer, Onset Age: 60 Family/Other Prostate cancer COUSIN Uncle Myocardial infarction, Onset Age: 52 Social History Smoking Status: Former smoker Age Quit Using Tobacco: 37; packs per day: 1; Hx Alcohol Use: Yes Alcohol type: beer and wine Alcohol Intake Frequency Comment: 4-5 beers per day Hx Substance Use: No Preferred Language: Azerbaijani Communication Ability: Effective Precision Aircraft Structure 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 Required: No Beliefs That Will Affect Care: None marital status: Current Living Situation: Spouse current occupational status: 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 Feels Safe at Home: Yes Physical Activity Frequency: Does not Exercise Seatbelt Use: sometimes Sunscreen Use: No Assistive Devices: None Allergies Allergies Allergy/AdvReac Type Severity Reaction Status Date / Time No Known Allergies Allergy Unverified 12/02/20 13:59 Home Meds Home Medications Medication Instructions Recorded Confirmed aspirin 81 mg tablet 81 mg PO DAILY tab 05/17/19 12/02/20 folic acid 1 mg PO DAILY 12/02/20 12/02/20 magnesium oxide 400 mg PO DAILY 12/02/20 12/02/20 Previous Rx's Medication Instructions Recorded amlodipine 5 mg tablet 5 mg .ROUTE DAILY #90 tab 05/14/20 carvedilol 12.5 mg tablet 12.5 mg PO DAILY #90 tab 09/29/20 atorvastatin 40 mg PO QAM 30 Days #30 tab 12/03/20 clopidogrel 75 mg PO QAM 30 Days #30 tab 12/03/20 Results & Data (ED) Home Medications Current Medication List: was personally reviewed by me Laboratory Data Attestation: I reviewed the patient's lab results. Result diagrams: 12/02/20 12:44 12/02/20 12:44 Lab Results 12/02/20 12/02/20 12/02/20 Range/Units 12:44 12:44 12:44 WBC 8.29 (4.8-10.8) K/uL RBC 4.18 L (4.7-6.1) M/uL Hgb 12.0 L (14.0-18.0) g/dL POC Hgb (14.0-18.0) g/dl Hct 36.0 L (42-52) % POC Hct (42-52) % MCV 86.1 (80-100) fL MCH 28.7 (25-34) pg MCHC 33.3 (32-36) g/dL RDW Std Deviation 46.9 H (36.4-46.3) fL RDW Coeff of Renan 14.8 H (11.5-14.5) % Plt Count 193 (130-400) K/uL MPV 10.5 H (7.4-10.4) fL Immature Gran % (Auto) 0.1 % Neut % (Auto) 68.7 % Lymph % (Auto) 15.6 % Ponce % (Auto) 13.8 % Eos % (Auto) 1.6 % Baso % (Auto) 0.2 % Neut # (Auto) 5.70 (1.4-6.5) K/uL Lymph # (Auto) 1.29 (1.2-3.4) K/uL Ponce # (Auto) 1.14 H (0.11-0.59) K/uL Eos # (Auto) 0.13 (0-0.5) K/uL Baso # (Auto) 0.02 (0-0.2) K/uL Immature Gran # (Auto) 0.01 (0.00-0.02) K/uL PT 11.9 (9.0-12.0) Seconds INR 1.2 H (0.9-1.1) APTT 30.5 (21.0-31.0) Seconds PTT Ratio 1.2 POC Sodium (135-144) mmol/L Sodium 135 L (136-145) mmol/L POC Potassium (3.3-5.0) mmol/L Potassium 3.8 (3.5-5.1) mmol/L POC Chloride (101-112) mmol/L Chloride 102 (98-107) mmol/L Carbon Dioxide 30 (21-32) mmol/L POC Total CO2 (24-31) mmol/L Anion Gap 3.0 (3-11) POC Anion Gap (16-25) mmol/L POC BUN (7-18) mg/dl BUN 14 (7-18) mg/dl Creatinine 1.01 (0.6-1.4) mg/dl POC Creatinine (0.6-1.3) mg/dl Est Cr Clr Drug Dosing 56.4 ml/min Est GFR ( Amer) 82.2 Est GFR (Non-Af Amer) 70.9 BUN/Creatinine Ratio 14.2 (10-20) Glucose 95 (70-99) mg/dl POC Glucose (other) (70-99) mg/dl Calcium 9.4 (8.5-10.1) mg/dl POC Ioniz Calcium Mis (1.12-1.32) mmol/l Magnesium 1.6 L (1.8-2.4) mg/dl Total Bilirubin 1.0 (0.2-1) mg/dl AST 27 (15-37) U/L ALT 26 (12-78) U/L Alkaline Phosphatase 131 H (45-117) U/L Troponin I < 0.015 (0-0.045) ng/ml Total Protein 8.5 H (6.4-8.2) gm/dl Albumin 3.7 (3.4-5.0) gm/dl Globulin 4.8 H (2.5-4.0) gm/dl Albumin/Globulin Ratio 0.8 L (0.9-2) COVID-19 Eval Order SARS-CoV-2 (PCR) (Negative) Influenza Type A (PCR) (Neg) Influenza Type B (PCR) (Neg) RSV (RT-PCR) (Neg) 12/02/20 12/02/20 12/02/20 Range/Units 13:06 13:20 13:20 WBC (4.8-10.8) K/uL RBC (4.7-6.1) M/uL Hgb (14.0-18.0) g/dL POC Hgb 12.2 L (14.0-18.0) g/dl Hct (42-52) % POC Hct 36 L (42-52) % MCV (80-100) fL MCH (25-34) pg MCHC (32-36) g/dL RDW Std Deviation (36.4-46.3) fL RDW Coeff of Renan (11.5-14.5) % Plt Count (130-400) K/uL MPV (7.4-10.4) fL Immature Gran % (Auto) % Neut % (Auto) % Lymph % (Auto) % Ponce % (Auto) % Eos % (Auto) % Baso % (Auto) % Neut # (Auto) (1.4-6.5) K/uL Lymph # (Auto) (1.2-3.4) K/uL Ponce # (Auto) (0.11-0.59) K/uL Eos # (Auto) (0-0.5) K/uL Baso # (Auto) (0-0.2) K/uL Immature Gran # (Auto) (0.00-0.02) K/uL PT (9.0-12.0) Seconds INR (0.9-1.1) APTT (21.0-31.0) Seconds PTT Ratio POC Sodium 136 (135-144) mmol/L Sodium (136-145) mmol/L POC Potassium 3.8 (3.3-5.0) mmol/L Potassium (3.5-5.1) mmol/L POC Chloride 97 L (101-112) mmol/L Chloride (98-107) mmol/L Carbon Dioxide (21-32) mmol/L POC Total CO2 29 (24-31) mmol/L Anion Gap (3-11) POC Anion Gap 15.0 L (16-25) mmol/L POC BUN 14 (7-18) mg/dl BUN (7-18) mg/dl Creatinine (0.6-1.4) mg/dl POC Creatinine 1.0 (0.6-1.3) mg/dl Est Cr Clr Drug Dosing ml/min Est GFR ( Amer) Est GFR (Non-Af Amer) BUN/Creatinine Ratio (10-20) Glucose (70-99) mg/dl POC Glucose (other) 96 (70-99) mg/dl Calcium (8.5-10.1) mg/dl POC Ioniz Calcium Mis 1.26 (1.12-1.32) mmol/l Magnesium (1.8-2.4) mg/dl Total Bilirubin (0.2-1) mg/dl AST (15-37) U/L ALT (12-78) U/L Alkaline Phosphatase (45-117) U/L Troponin I (0-0.045) ng/ml Total Protein (6.4-8.2) gm/dl Albumin (3.4-5.0) gm/dl Globulin (2.5-4.0) gm/dl Albumin/Globulin Ratio (0.9-2) COVID-19 Eval Order CovFluRsv at [facility] SARS-CoV-2 (PCR) NEGATIVE (Negative) Influenza Type A (PCR) Negative (Neg) Influenza Type B (PCR) Negative (Neg) RSV (RT-PCR) Negative (Neg) Administered Medications Discontinued Medications Amlodipine Besylate (Amlodipine Besylate 5 Mg Tab) 5 mg PO DAILY LISA Stop: 01/02/21 08:59 Last Admin: 12/03/20 08:41 Dose: 5 mg Documented by: [id number] Aspirin (Aspirin Chew 324 Mg) 324 mg PO NOW STA Stop: 12/02/20 12:44 Last Admin: 12/02/20 13:00 Dose: 324 mg Documented by: [id number] Aspirin (Aspirin 81 Mg Ectab) 81 mg PO QAM LISA Stop: 01/02/21 08:59 Last Admin: 12/03/20 08:41 Dose: 81 mg Documented by: [id number] Atorvastatin Calcium (Atorvastatin 40 Mg Tab) 40 mg PO QAM [facility] Stop: 01/02/21 09:59 Last Admin: 12/03/20 11:57 Dose: 40 mg Documented by: [id number] Carvedilol (Carvedilol 12.5 Mg Tab) 12.5 mg PO DAILY LISA Stop: 01/02/21 08:59 Last Admin: 12/03/20 08:41 Dose: 12.5 mg Documented by: [id number] Clopidogrel Bisulfate (Clopidogrel Bisulfate 300 Mg Tab) 300 mg PO NOW STA Stop: 12/02/20 16:17 Last Admin: 12/02/20 16:36 Dose: 300 mg Documented by: [id number] Clopidogrel Bisulfate (Clopidogrel Bisulfate 75 Mg Tab) [facility] [place] Stop: 01/02/21 08:59 Last Admin: 12/03/20 08:42 Dose: 75 mg Documented by: [id number] Folic Acid (Folic Acid 1 Mg Tab) 1 mg PO DAILY LISA Stop: 01/02/21 08:59 Last Admin: 12/03/20 08:42 Dose: 1 mg Documented by: [id number] Sodium Chloride (Nss 1000ml) 1,000 mls @ 999 mls/hr IV .Q1H1M ONE Stop: 12/02/20 13:43 Last Infusion: 12/02/20 14:40 Dose: 0 mls/hr Documented by: [id number] Admin: 12/02/20 12:50 Dose: 999 mls/hr Documented by: [id number] Magnesium Sulfate/Dextrose (Magnesium Sulfate / D5w) 1 gm in 100 mls @ 100 mls/hr IV NOW STA Stop: 12/02/20 13:43 Last Infusion: 12/02/20 14:10 Dose: 0 mls/hr Documented by: [id number] Admin: 12/02/20 13:00 Dose: 100 mls/hr Documented by: [id number] Ioversol (Optiray 350 500ml) 114 ml IV ONCE ONE Stop: 12/02/20 14:06 Last Admin: 12/02/20 14:06 Dose: 114 ml Documented by: [id number] Magnesium Chloride (Magnesium Chloride 64mg Delayed Rel Tab) 64 mg PO BID LISA Stop: 01/01/21 20:59 Last Admin: 12/03/20 08:42 Dose: 64 mg Documented by: [id number] Admin: 12/02/20 21:03 Dose: 64 mg Documented by: [id number] Thiamine HCl (Thiamine Hcl 100 Mg Tab) 100 mg PO QAM [facility] Stop: 01/02/21 10:59 Last Admin: 12/03/20 11:57 Dose: 100 mg Documented by: [id number] Imaging Data Radiologist's Impression: Brain MRI 12/02/20 12:39 MRI OF THE BRAIN WITHOUT CONTRAST CLINICAL HISTORY: Stroke like symptoms COMPARISON STUDY: Noncontrast head CT dated 11/24/2020 FINDINGS: Sagittal T1, axial diffusion, proton density and T2 weighted axial, coronal FLAIR, and axial T1-weighted images were acquired. No intra or extra-axial mass lesions are visualized There is a 1 cm focus of restricted water diffusion within the right lateral thalamus. The findings are consistent with a subacute infarct, given the appeara nce on the accompanying noncontrast head CT. There is no evidence of ventricular dilatation. Proton density T2-weighted and FLAIR images reveal scattered foci of increased T2 signal within the white matter, likely on a small vessel basis. There are no abnormal flow voids. IMPRESSION: 1. 1 cm subacute infarct within the right lateral thalamus. ACT 112: Negative or not required by law. Electronically signed by: Adria Diaz M.D. 12/02/2020 3:00 PM Chest X-Ray 12/02/20 12:39 XR chest 1V portable HISTORY: Stroke Like Symptoms COMPARISON: Chest 03/29/2015. FINDINGS: There are poststernotomy changes. The heart is normal in size. No pleural effusions. No pneumothorax. No focal lung consolidations to suggest pneumonia. No evidence for pulmonary edema. IMPRESSION: No significant change compared to the prior study. No acute process. ACT 112: Negative or not required by law. Electronically signed by: Prasanna Becker M.D. 12/02/2020 1:[address] 12/02/20 12:39 CT head/brain wo con CLINICAL HISTORY: Stroke Like Symptoms COMPARISON STUDY: No previous studies for comparison. TECHNIQUE: Axial CT of the brain is performed from the vertex to the skull base. IV contrast was not administered for this examination. A dose lowering technique was utilized adhering to the principles of ALARA. CT DOSE: 1419.22 mGy.cm FINDINGS: No intra or extra-axial mass lesions are visualized. There is no CT evidence of acute cortical infarction. There is no evidence of midline shift. There is no acute hemorrhage. No calvarial fractures are visualized. There are patchy white matter hypodensities likely on a small vessel basis. There is a right lateral thalamic infarct, likely old. There is no evidence of pathologic ventricular dilatation. There is no evidence of acute sinusitis IMPRESSION: 1. Right lateral thalamic infarct, likely old 2. No evidence of acute hemorrhage. No evidence of intracranial mass. ACT 112: Negative or not required by law. Electronically signed by: Adria Diaz M.D. 12/02/2020 2:15 PM Head CTA 12/02/20 12:39 HEAD CTA HISTORY: Difficulty walking. Stroke Like Symptoms TECHNIQUE: Multiaxial CT images of the head were performed both before and after the intravenous administration of contrast to evaluate the major cerebral vessels. Maximum intensity projection images were also obtained. A dose lowering technique was utilized adhering to the principles of ALARA. COMPARISON: Head CT 11/24/2020. FINDINGS: The major dural venous sinuses appear patent. Focal severe stenosis within the distal left vertebral artery due to the extensive calcified plaque. The remaining distal left vertebral artery and right vertebral artery are patent. No significant stenosis within the basilar artery. There is moderate multifocal narrowing within the bilateral carotid siphons due to the extensive calcified plaque. No significant stenosis, occlusion, or aneurysm within the bilateral ACAs, MCAs, or heating and air conditioning mechanic. IMPRESSION: 1. 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 2. Moderate multifocal narrowing within the bilateral carotid siphons due to the extensive calcified plaque. 3. No significant stenosis, occlusion, or aneurysm within the bilateral ACAs, MCAs, or heating and air conditioning mechanic. ACT 112: Negative or not required by law. Electronically signed by: Prasanna Becker M.D. 12/02/2020 2:22 PM Neck CTA 12/02/20 12:39 CT angio neck with con CLINICAL HISTORY: Stroke Like Symptoms COMPARISON STUDY: No previous studies for comparison. TECHNIQUE: CT angiography was performed from the aortic arch to the skull base. MIP imaging was performed. The patient was scanned in a dynamic helical fashion during intravenous administration of 114 cc of Optiray. A dose lowering technique was utilized adhering to the principles of ALARA. CT DOSE: Technique: CT angiogram of the carotid and vertebral arteries was obtained using intravenous contrast and 3-D reconstruction. NASCET criteria was utilized. Findings: There is pulmonary emphysema. The right carotid reveals extensive calcific atheromatous plaque at the bulb. There is no evidence of hemodynamically significant stenosis. There is cavernous sinus carotid calcification. Without hemodynamic significant stenosis. There is no dissection. The left carotid reveals extensive calcific atheromatous plaque at the level of the bulb. There is no evidence of hemodynamically significant left carotid stenosis. There is cavernous carotid calcification without evidence of significant stenosis. There is no evidence of hemodynamically significant vertebral stenosis. There is no evidence of vertebral dissection. IMPRESSION: No evidence of hemodynamically significant carotid or vertebral artery stenosis. No evidence of dissection. ACT 112: Negative or not required by law. Electronically signed by: Adria Diaz M.D. 12/02/2020 2:18 PM Discharge Plan Visit Data Chief Complaint: Stroke/CVA Symptoms Stated Complaint: STROKE, SENT FOR [facility] ED Provider: Cesar Rice Discharge Problem: Right thalamic stroke, Cerebrovascular accident (CVA), Left-sided muscle weakness Patient Disposition: Admitted As Inpatient Condition: Good Discharge Instructions Interventions: ED Discharge Assessment Last Done: 12/02/20 17:57 Discharge Problem: Cerebrovascular accident (CVA) Qualifiers: CVA mechanism: unspecified Qualified Code(s): I63.9 - Cerebral infarction, unspecified
--- NOTE | 2020-12-06 14:12 | Discharge Summary ---
Date of Service December 03, 2020 Admission HPI Per Admitting Provider Mr. Castillo is a 80-year-old male with a history of CAD s/p MA 2003, CABG x 3 Vessels 2003 ([facility], [place]), Dyslipidemia, Former Smoker, Prostate Cancer s/p Robotically-Assisted Prostatectomy 2014, Urinary Incontinence, Alcohol Abuse (4 beers and 4 glasses of wine/day), Peripheral Neuropathy, and Carotid Artery Stenosis who sustained a Right Sided CVA 12 days ago -- but he did not seek medical attention until 11/30/2020 when he was evaluated at [facility]. Patient was told he had a stroke in the ER of that facility -- and he was advised to be admitted for further evaluation by Neurology and Physical Therapy. Patient decided he did not want to do that, so he signed out AMA. Nonetheless, the patient's has been encouraging him to seek further evaluation and treatment, so at her insistence he came to [facility] ER today. Patient continues to experience mild left upper extremity and mild left leg weakness, has difficulty holding objects with his left hand, and struggles to walk up the stairs because of his left leg weakness. Patient denies any progression of this weakness since its initial onset. He has not had any slurred speech, visual disturbance, blind spots, black spots, loss of visual mckeon, nor has he had any facial droop. Patient's states that he has been having difficulty swallowing foods and pills -- but this has been present for years, and has not changed recently or with the onset of his recent stroke symptoms. Apparently the patient has been living on Boost, beer, and wine. He still does eat some solid foods. Otherwise, patient is chronically incontinent of urine but has refused to seek any medical attention for this problem. Again, this predates his recent stroke symptoms. Please note that the patient has been taking Coreg, Aspirin, and Amlodipine on a daily basis -- and did not miss any doses leading up to his CVA. Patient is able to perform his usual activities of daily living without difficulty or limiting symptoms. He specifically denies any exertional chest pain, heaviness, tightness, pressure, or angina pectoris. No exertional neck, jaw, back, or arm pain. No shortness of breath or unusual dyspnea on exertion. He further denies any palpitations, syncope, or near-syncope. No orthopnea or PND. Patient underwent a Stress Echocardiogram 03/06/2015 and preparation of his prostatectomy. He exercised for 7 minutes and 37 seconds on standard Cristian protocol attaining a 10 MET workload, and 74% MPHR. No evidence of myocardial ischemia. Baseline LV systolic function within normal limits with an LVEF of 60%, mild mitral regurgitation. HISTORICAL BACKGROUND: Patient's cardiac history dates back to 2003 when he developed sudden onset crushing chest pain which radiated down bilateral arms and had associated nausea, vomiting, and diaphoresis. He was diagnosed with an MA (details unknown) and transferred to [facility] [place] in [facility], where he underwent CABG x 3 Vessels (DELGADILLO to LAD, IRAIS to PDA and BROOKE in a sequential fashion). No postoperative complications. Thereafter the patient remained asymptomatic from a cardiac standpoint. He had an Echocardiogram performed in October 2004 which showed normal LV size and systolic function with an LVEF of 55%, no regional wall motion abnormalities. Borderline LVH. Aortic valve sclerosis without stenosis, trace to mild MR, trace to mild TR. He also had a nuclear stress test 10/13/2004 which showed no evidence of ischemia. Patient denies any history of congenital heart disease, CHF, cardiomyopathy, rheumatic fever, or cardiac dysrhythmias. No history of diabetes mellitus, hypertension, or hypercholesterolemia? (Not on a statin). No history of COPD, asthma, emphysema, or chronic bronchitis. No history of thyroid disease. Principal Diagnosis Subacute right thalamic stroke Discharge Exam Constitutional WD/WN, vitals as above Neck trachea midline, no thyromegaly Respiratory normal respiratory effort, lungs clear to auscultation Cardiovascular RRR, no murmur, no edema Gastrointestinal (Abdomen) normal bowel sounds, soft, nontender, no hepatosplenomegaly Musculoskeletal no cyanosis or clubbing, extremities motor strength 5/5 Skin no rashes, warm and dry Neurologic patellar DTR's 2+ bilat, sensation intact and PERRL, EOMI, accommodation nl, no face palsy, no dysarthria Psychiatric A+Ox3, euthymic affect Lymphatic no cervical or axillary lymphadenopathy Discharge Data Allergies Allergy/AdvReac Type Severity Reaction Status Date / Time No Known Allergies Allergy Unverified 12/02/20 13:59 Consultations 12/02/20 18:49 Consult Neurology Routine Ordered Studies 12/02/20 12:39 CT angio head w con Stat CT angio neck with con Stat CT head/brain wo con Stat MR brain wo con Stat Hospital Course (1) Cerebrovascular accident (CVA): subacute right thalamic stroke presented with left sided weakness, dizziness all symptoms resolved MRI brain with evidence of stroke in right thalamus plan: aspirin and Plavix x 3 weeks then Plavix 75mg daily Lipitor 40mg PO daily BP control with prior regimen of Norvasc 5mg daily and Coreg 12.5mg BID will need to get echocardiogram as outpatient will get 30 day Holter monitor to rule out paroxysmal afib recommend HbA1c and lipid profile next week when he follows up with PCP last known A1c was normal appreciate neurology consult for recommendations, can follow up with neurology in 6-8 weeks (2) Left-sided muscle weakness: due to stroke, resolved at this time (3) CAD (coronary atherosclerotic disease): continue Coreg added Lipitor 40mg daily will transition aspirin to Plavix for stroke prevention (4) Hypertension: BP stable on norvasc and coreg (5) Dyslipidemia: add Lipitor 40mg daily Total Time Total Time Spent Total Time Spent (In Minutes): 32 Total Time Includes: Examination of the Patient, Discharge Planning, Medication Reconciliation and Communication With Other Providers (Dr. Trinh) Discharge Plan Discharge Items Patient Disposition: Home - Home Health Services Reason For Visit: RIGHT LATERAL THALAMIC CVA Discharge Diagnosis: Subacute right thalamic stroke Condition on Discharge: Good Goals: medical management to reduce further stroke risk complete Holter monitor to rule out paroxysmal atrial fibrillation Activity: Resume your previous activity Non-emergency contact: Primary Care Provider Call non-emergency contact if: you have any medication questions Follow-up/Referrals: Sherri Mi DO [Primary Care Provider] - (one week) Lisa Shepherd PA-C [Physician Physical Therapy Nurse] - (6-8 weeks) Diet: Heart Healthy Ambulatory Orders: Hemoglobin A1C (Routine) Timeframe: 20201207 Location: Determined by Patient Ordered By: George Pollard Lipid Profile Fasting (Routine) Timeframe: 20201207 Location: Determined by Patient Ordered By: George Pollard CA echo transthoracic complete (Routine) Timeframe: 2 Weeks Location: Determined by Patient Ordered By: George Haidertl Attending Provider Instructions: Medications: - PLAVIX: 75mg daily, this will replace aspirin that you were taking as antiplatelet medication - ASPIRIN: continue to take 81mg daily for 21 days then stop and only take Plavix - LIPITOR: 40mg daily to stabilize plaques and lower cholesterol, proven to reduce risk of future stroke Subacute right thalamic stroke most likely etiology is small vessel ischemia, thrombus use aspirin and Plavix as instructed above, started on Lipitor 40mg daily blood pressure control with Norvasc and Coreg will get blood work as outpatient for cholesterol and Hemoglobin A1c will get echo as outpatient will get Holter monitor for 30 days to rule out silent atrial fibrillation Risk Factors for Stroke: You can reduce your chances of stroke by working with your medical provider to adopt a healthy lifestyle. Some specific ways to lower your chance of stroke are: * If you are a smoker, now is the time to stop smoking cigarettes * If you are diabetic, improve the control of your blood sugars * Avoid excessive amounts of alcohol * Control high blood pressure * Lose weight if you are overweight * Be sure to lead an active lifestyle * Eat a healthy diet low in salt, cholesterol and fat You should know about other risk factors for stroke that you are unable to control. These include: * Age 55 years or older * Male gender * Certain racial groups: , or / * Family History of Stroke, Mini stroke or Heart Attack * Sickle Cell Disease Follow Up: It is important for you to keep your follow up appointments with your medical provider. Who to Call and When: Medical Emergencies: Call 911 immediately if you experience any of the following warning signs and symptoms of Stroke: * Sudden numbness or weakness of the face, arm or leg, especially on one side of the body * Sudden confusion, trouble speaking or understanding * Sudden trouble seeing in one or both eyes * Sudden trouble walking, dizziness, loss of balance or coordination * Sudden severe headache with no cause Do not delay calling 911 if you experience any warning signs or symptoms of a stroke. Delay in seeking medical attention may affect what treatments can be given to you. . Pending Studies at Discharge: No Stand-Alone Forms: My [facility] [employer], Smoking Cessation Medications and DC Order Prescriptions: New clopidogrel 75 mg Tablet 75 mg PO QAM 30 Days Qty: 30 RF: 4 atorvastatin 40 mg Tablet 40 mg PO QAM 30 Days Qty: 30 RF: 4 Continued amlodipine 5 mg tablet 5 mg .ROUTE DAILY Qty: 90 RF: 1 carvedilol 12.5 mg tablet 12.5 mg PO DAILY Qty: 90 RF: 1 aspirin 81 mg tablet 81 mg PO DAILY RF: 0 folic acid 1 mg Tablet 1 mg PO DAILY RF: 0 magnesium oxide 400 mg magnesium capsule 400 mg PO DAILY RF: 0 Discharge Orders: Discharge Order (Routine); Ordered 12/03/20 Ordered By: George Pollard Admission Data Admit Date/Time: 12/02/20 16:36 Attending Provider: George Pollard Admit Provider: Mckay Castellanos Primary Care Provider: Sherri Mi Other Providers: Geneva Trinh Other Interventions: Discharge Summary Assessment (RN) Last Done: 12/03/20 15:51 Coding Level of Care Code 72398 OBS Care - Discharge Diagnoses Cerebrovascular accident (CVA) I63.9 CVA mechanism: unspecified Left-sided muscle weakness M62.81 CAD (coronary atherosclerotic disease) I25.10 Hypertension I10 Dyslipidemia E78.5
== END 2020-12-03 16:17 | disposition home health service (06) ==
LOC: 2N 11:27 → ED 11:27 → SUATTDRO 16:36 → 2N 17:57